=== PATIENT | female | born 2000 | race Caucasian/White ===

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

== ENCOUNTER 2018-01-19 17:40 | Emergency (ER) | payer BC, OTHER ==
[2018-01-19 23:41] VITALS: BP 129/82
--- NOTE | 2018-01-20 01:02 | ED ---
Dylan Diaz Gabriel, scribed for Edson Palacios MD on 01/19/18 at 2231 . Throat Pain/Nasal Congestion - HPI Summary HPI Summary: This patient is a 17 year old F presenting to [facility] c/o blurred vision and increased anxiety. The patient has a history of anxiety disorder and began Abilify a month ago. A week ago she began to have blurred vision and a light headache behind her eyes. Pt was seen at [facility] earlier today and was sent here. LNMP was a month ago. - History of Current Complaint Chief Complaint: EDEyeProblem Time Seen by Provider: 01/19/18 22:10 Hx Obtained From: Patient Onset/Duration: Lasting Weeks, Still Present Severity: Mild Associated Signs And Symptoms: Negative: Drooling - Allergies/Home Medications Allergies/Adverse Reactions: Allergies Allergy/AdvReac Type Severity Reaction Status Date / Time bee venom protein (honey bee) Allergy Swelling Verified 01/19/18 20:04 iodine Allergy Anaphylatic Verified 01/19/18 20:04 Shock Penicillins Allergy Rash Verified 01/19/18 20:04 shellfish derived Allergy Anaphylatic Verified 01/19/18 20:04 Shock Sulfa (Sulfonamide Allergy Rash Verified 01/19/18 20:04 Antibiotics) pinapple Allergy Swelling Uncoded 01/19/18 20:04 Of Face,Lips,& Throat Home Medications: Home Medications EPINEPHrine [Epipen 2-Shantanu] 0.3 mg IM ONCE PRN 01/19/18 [History Confirmed ] hydrOXYzine HCl [Hydroxyzine HCl] 50 mg PO DAILY PRN 01/19/18 [History Confirmed 01/19/18] PMH/Surg Hx/FS Hx/Imm Hx Endocrine/Hematology History: Denies: Hx Diabetes Cardiovascular History: Denies: Hx Hypertension Respiratory History: Reports: Hx Asthma History: Reports: Other Problems/Disorders - ovarian cysts Psychiatric History: Reports: Hx Anxiety, Hx Bipolar Disorder Denies: Hx Eating Disorder - Immunization History Date of Tetanus Vaccine: utd Date of Influenza Vaccine: none Infectious Disease History: No Infectious Disease History: Denies: Traveled Outside the [place] in Last 30 Days - Family History Known Family History: Positive: Diabetes, Other - melanoma Negative: Respiratory Disease, Seizure Disorder - Social History Occupation: Student Lives: Dormitory/Roommates Alcohol Use: Weekly Alcohol Amount: appr. 5 Hx Substance Use: No Substance Use Type: Reports: None Substance Use Comment - Amount & Last Used: weekly Hx Tobacco Use: No Smoking Status (MU): Never Smoked Tobacco Review of Systems Negative: Fever Positive: Blurred Vision Positive: Headache Positive: Anxious All Other Systems Reviewed And Are Negative: Yes Physical Exam - Summary Physical Exam Summary: Appearance: Well appearing, no pain distress Skin: warm, dry, reflects adequate perfusion, there are healed excoriations on the left hand and linear scars on both LE from self harm. Head/face: normal Eyes: EOMI, CARMEN, peripheral vision is normal, red reflex in both eyes is normal , right eye is 20/100, left is 20/50, bilateral 20/40 ENT: normal Neck: supple, non-tender Respiratory: CTA, breath sounds present Cardiovascular: RRR, pulses symmetrical Abdomen: non-tender, soft Bowel Sounds: present Musculoskeletal: normal, strength/ROM intact Neuro: flat affect, sensory motor intact, A&Ox3, pt does not appear anxious Triage Information Reviewed: Yes Vital Signs On Initial Exam: Initial Vitals Temp Pulse Resp BP Pulse Ox 98.0 F 78 16 128/92 100 01/19/18 17:45 01/19/18 17:45 01/19/18 17:45 01/19/18 17:45 01/19/18 17:45 Vital Signs Reviewed: Yes Diagnostics - Vital Signs Vital Signs Temp Pulse Resp BP Pulse Ox 01/19/18 20:00 99.2 F 74 18 140/94 100 01/19/18 17:45 98.0 F 78 16 128/92 100 - Laboratory Lab Results: Lab Results 01/19/18 Range/Units 22:27 POC Glucose (mg/dL) 85 (70-100) mg/dL Lab Statement: Any lab studies that have been ordered have been reviewed, and results considered in the medical decision making process. EENT Course/Dx - Course Course Of Treatment: Patient with decreased visual acuities bilateral since starting Abilify. Blurred vision is a known side effect/adverse reaction of the medication. She is otherwise benign-appearing. She has no diplopia and her near vision is normal. She will require a complete eye exam and tapering off the medication. This will be done by her primary care physician at the [facility]. She is referred back there to call first thing in the morning. - Differential Diagnoses Differential Diagnoses: Other - Medication side effect, hypoglycemia, cluster headache, - Diagnoses Provider Diagnoses: Blurred vision, Medication side effect Discharge - Sign-Out/Discharge Documenting (check all that apply): Discharge/Admit/Transfer - Discharge Plan Condition: Stable Disposition: HOME Patient Education Materials: Blurred Vision (ED) Referrals: Chester Asher MD [Medical Doctor] - 2 Days Additional Instructions: Patient with common side effect of the Abilify medication that she was recently started on. Her acuities are diminished bilaterally. Worse in the right eye. Her sugar is normal. We will refer her back to her primary care office to taper the Abilify and refer her to optometry for complete eye exam. The documentation as recorded by the Dylan madden Gabriel accurately reflects the service I personally performed and the decisions made by me, Edson Palacios MD.
== END 2018-01-19 23:40 | disposition home or self-care (01) ==
LOC: ED 17:40
DX: H53.8 Other visual disturbances (principal); T43.595A Adverse effect of other antipsychotics and neuroleptics, initial encounter; Z88.0 Allergy status to penicillin; Z88.2 Allergy status to sulfonamides; Z88.8 Allergy status to other drugs, medicaments and biological substances
CPT/HCPCS: 99282

== ENCOUNTER → 2018-07-27 | Emergency (ER) | payer BC ==
[~2018-07-27] MED LIST: Aspirin 81 mg CHEW TAB* 81 MG TAB.CHEW PO ONE; hydrOXYzine HCL TAB* 50 MG PO ONE
--- NOTE | 2018-07-27 13:32 | RAD ---
Indication: Chest pain. 2 views of the chest including dual energy PA views demonstrate no mediastinal shift. Heart is of normal size and configuration. Lung aguirre are clear. No prior study is available for comparison. IMPRESSION: No active cardiopulmonary disease is noted.
[2018-07-27 13:41] LABS: ABS Basophils 0.1 10^3/ul (0-0.2); ABS Eosinophils 0.1 10^3/ul (0-0.6); ABS Lymphocytes 2.2 10^3/ul (1.0-4.8); ABS Monocytes 0.8 10^3/ul (0-0.8); ABS Neutrophils 8.4 10^3/ul (1.5-7.7); ABS Nucleated RBC 0 10^3/ul; Eosinophil % 0.5 % (0-6); Hematocrit 41 % (35-47); Hemoglobin 14.2 g/dl (12.0-16.0); Lymphocyte % 18.6 % (25-47); Mean Corpuscular HGB Conc 35 g/dl (31-36); Mean Corpuscular Hemoglobin 32 pg (27-31); Mean Corpuscular Volume 92 fL (80-97); Nucleated Red Blood Cells % 0.1; Platelet Count 350 10^3/ul (150-450); Red Blood Count 4.44 10^6/ul (4.00-5.40); Red Cell Distribution Width 13 % (10.5-15); White Blood Count 11.6 10^3/ul (3.5-10.8)
[2018-07-27 13:58] LABS: INR 0.95 (0.77-1.02)
[2018-07-27 13:59] LABS: EGFR Non-African American 108.5 (>60)
--- NOTE | 2018-07-27 14:16 | ED ---
Psychiatric Complaint - HPI Summary HPI Summary: This patient is a 18 year old F presenting to [facility] with a chief complaint of anxiety for the past couple of days. She endorses racing palpitations, SOB, and dizziness. PMHx bipolar disorder (no medication currently), panic attacks; she states she takes hydroxyzine 50 mg, but has none with her; I need it. PMHx HLD , asthma. SHx multiple surgeries to repair bilateral hip dysplasia. FHx anxiety , bipolar disorder. Pt denies alcohol use today, denies all substance abuse. - History Of Current Complaint Chief Complaint: EDShortnessOfBreath Time Seen by Provider: 07/27/18 13:30 Hx Obtained From: Patient Onset/Duration: Gradual Onset, Lasting Days, Still Present Timing: Constant Severity Initially: Moderate Severity Currently: Moderate Character: Anxious - with hyperventilation/SOB, dizziness, racing heartbeat Aggravating Factor(s): Nothing Alleviating Factor(s): Other - hydroxyzine Associated Signs And Symptoms: Positive: Negative Related History: Positive For: Prior Psychiatric Issues - Panic disorder, bipolar disorder, anxiety Has Suicidal: Denies: Thoughts Has Homicidal: Denies: Thoughts - Allergies/Home Medications Allergies/Adverse Reactions: Allergies Allergy/AdvReac Type Severity Reaction Status Date / Time bee venom protein (honey bee) Allergy Swelling Verified 07/27/18 13:01 iodine Allergy Anaphylatic Verified 07/27/18 13:01 Shock Penicillins Allergy Rash Verified 07/27/18 13:01 shellfish derived Allergy Anaphylatic Verified 07/27/18 13:01 Shock Sulfa (Sulfonamide Allergy Rash Verified 07/27/18 13:01 Antibiotics) pinapple Allergy Swelling Uncoded 01/19/18 20:04 Of Face,Lips,& Throat PMH/Surg Hx/FS Hx/Imm Hx Previously Healthy: No Endocrine/Hematology History: Denies: Hx Diabetes, Hx Sickle Cell Disease Cardiovascular History: Reports: Hx Hypercholesterolemia Denies: Hx Hypertension Respiratory History: Reports: Hx Asthma GI History: Denies: Hx Ileostomy History: Reports: Other Problems/Disorders - ovarian cysts Sensory History: Denies: Hx Contacts or Glasses, Hx Deafness Opthamlomology History: Denies: Hx Contacts or Glasses EENT History: Denies: Hx Deafness Psychiatric History: Reports: Hx Anxiety, Hx Panic Disorder, Hx Bipolar Disorder Denies: Hx Eating Disorder - Surgical History Surgery Procedure, Year, and Place: multiple bilateral hip dysplasia repairs. - Immunization History Date of Tetanus Vaccine: utd Date of Influenza Vaccine: none Infectious Disease History: No Infectious Disease History: Denies: Traveled Outside the [place] in Last 30 Days - Family History Known Family History: Positive: Diabetes, Other - melanoma Negative: Respiratory Disease, Seizure Disorder - Social History Occupation: Student Lives: Dormitory/Roommates Alcohol Use: Weekly Alcohol Amount: appr. 5 Hx Substance Use: No Substance Use Type: Reports: None Substance Use Comment - Amount & Last Used: weekly Hx Tobacco Use: No Smoking Status (MU): Never Smoked Tobacco Review of Systems Negative: Fever Positive: Palpitations - racing Positive: Shortness Of Breath Positive: no symptoms reported Skin: Negative Neurological: Other - dizziness Positive: Anxious All Other Systems Reviewed And Are Negative: Yes Physical Exam - Summary Physical Exam Summary: Appearance: ill-appearing, minimal pain distress, well-nourished, rapid hyperventilating respirations, encouraged to do cupped breathing, no odor similar to ETOH Skin: Warm, color reflects adequate perfusion, dry Head: Normal Head/Face inspection, atraumatic Eyes: Conjunctiva clear ENT: Normal inspection Neck: Supple, no nodes, no JVD Respiratory: shallow respirations, rapid hyperventilating respirations, no wheezes, rales, or rhonchi Cardio: RRR, No murmur, pulses normal, brisk capillary refill Abdomen: Soft, nontender Bowel sounds: Present Musculoskeletal: Strength Intact/ROM intact, no calf tenderness, no edema. Psychological: states she is anxious Neuro: Alert, muscle tone normal, no focal deficit Triage Information Reviewed: Yes Vital Signs On Initial Exam: Initial Vitals Temp Pulse Resp BP Pulse Ox 98.5 F 111 24 139/89 100 07/27/18 12:56 07/27/18 12:56 07/27/18 12:56 07/27/18 12:56 07/27/18 12:56 Vital Signs Reviewed: Yes Diagnostics - Vital Signs Vital Signs Temp Pulse Resp BP Pulse Ox 07/27/18 12:56 98.5 F 111 24 139/89 100 - Laboratory Lab Results: Lab Results 07/27/18 07/27/18 07/27/18 Range/Units 13:28 13:28 13:28 WBC 11.6 H (3.5-10.8) 10^3/ul RBC 4.44 (4.00-5.40) 10^6/ul Hgb 14.2 (12.0-16.0) g/dl Hct 41 (35-47) % MCV 92 (80-97) fL MCH 32 H (27-31) pg MCHC 35 (31-36) g/dl RDW 13 (10.5-15) % Plt Count 350 (150-450) 10^3/ul MPV 9.0 (7.4-10.4) um3 Neut % (Auto) 72.8 (38-83) % Lymph % (Auto) 18.6 L (25-47) % Boyle % (Auto) 7.0 (0-7) % Eos % (Auto) 0.5 (0-6) % Baso % (Auto) 1.1 (0-2) % Absolute Neuts (auto) 8.4 H (1.5-7.7) 10^3/ul Absolute Lymphs (auto) 2.2 (1.0-4.8) 10^3/ul Absolute Monos (auto) 0.8 (0-0.8) 10^3/ul Absolute Eos (auto) 0.1 (0-0.6) 10^3/ul Absolute Basos (auto) 0.1 (0-0.2) 10^3/ul Absolute Nucleated RBC 0 10^3/ul Nucleated RBC % 0.1 INR (Anticoag Therapy) 0.95 (0.77-1.02) D-Dimer, Quantitative < 200 (Less Than 230) ng/mL Sodium 138 (135-145) mmol/L Potassium 3.5 (3.5-5.0) mmol/L Chloride 106 (101-111) mmol/L Carbon Dioxide 22 (22-32) mmol/L Anion Gap 10 (2-11) mmol/L BUN 14 (6-24) mg/dL Creatinine 0.69 (0.51-0.95) mg/dL Est GFR ( Amer) 131.2 (>60) Est GFR (Non-Af Amer) 108.5 (>60) BUN/Creatinine Ratio 20.3 H (8-20) Glucose 118 H (70-100) mg/dL Lactic Acid (0.5-2.0) mmol/L Calcium 10.2 (8.6-10.3) mg/dL Magnesium 1.8 L (1.9-2.7) mg/dL Total Bilirubin 0.50 (0.2-1.0) mg/dL AST 15 (13-39) U/L ALT 14 (7-52) U/L Alkaline Phosphatase 69 (34-104) U/L Total Creatine Kinase 70 (10-223) U/L CK-MB (CK-2) 0.8 (0.6-6.3) ng/mL Troponin I 0.00 (<0.04) ng/mL Total Protein 7.4 (6.4-8.9) g/dL Albumin 4.7 (3.2-5.2) g/dL Globulin 2.7 (2-4) g/dL Albumin/Globulin Ratio 1.7 (1-3) TSH Pending Thyroxine (T4) Pending Beta HCG, Quant < 0.60 mIU/mL 07/27/18 Range/Units 13:28 WBC (3.5-10.8) 10^3/ul RBC (4.00-5.40) 10^6/ul Hgb (12.0-16.0) g/dl Hct (35-47) % MCV (80-97) fL MCH (27-31) pg MCHC (31-36) g/dl RDW (10.5-15) % Plt Count (150-450) 10^3/ul MPV (7.4-10.4) um3 Neut % (Auto) (38-83) % Lymph % (Auto) (25-47) % Boyle % (Auto) (0-7) % Eos % (Auto) (0-6) % Baso % (Auto) (0-2) % Absolute Neuts (auto) (1.5-7.7) 10^3/ul Absolute Lymphs (auto) (1.0-4.8) 10^3/ul Absolute Monos (auto) (0-0.8) 10^3/ul Absolute Eos (auto) (0-0.6) 10^3/ul Absolute Basos (auto) (0-0.2) 10^3/ul Absolute Nucleated RBC 10^3/ul Nucleated RBC % INR (Anticoag Therapy) (0.77-1.02) D-Dimer, Quantitative (Less Than 230) ng/mL Sodium (135-145) mmol/L Potassium (3.5-5.0) mmol/L Chloride (101-111) mmol/L Carbon Dioxide (22-32) mmol/L Anion Gap (2-11) mmol/L BUN (6-24) mg/dL Creatinine (0.51-0.95) mg/dL Est GFR ( Amer) (>60) Est GFR (Non-Af Amer) (>60) BUN/Creatinine Ratio (8-20) Glucose (70-100) mg/dL Lactic Acid 2.6 H* (0.5-2.0) mmol/L Calcium (8.6-10.3) mg/dL Magnesium (1.9-2.7) mg/dL Total Bilirubin (0.2-1.0) mg/dL AST (13-39) U/L ALT (7-52) U/L Alkaline Phosphatase (34-104) U/L Total Creatine Kinase (10-223) U/L CK-MB (CK-2) (0.6-6.3) ng/mL Troponin I (<0.04) ng/mL Total Protein (6.4-8.9) g/dL Albumin (3.2-5.2) g/dL Globulin (2-4) g/dL Albumin/Globulin Ratio (1-3) TSH Thyroxine (T4) Beta HCG, Quant mIU/mL Result Diagrams: 07/27/18 13:28 07/27/18 13:28 Lab Statement: Any lab studies that have been ordered have been reviewed, and results considered in the medical decision making process. - Radiology CXR Radiology Interpretation Completed By: Radiologist Summary of Radiographic Findings: No active cardiopulmonary disease is noted. Dr. Ludwig has reviewed this report. - EKG 1317 Cardiac Rate: NL - 88 EKG Rhythm: Sinus Rhythm ST Segment: Non-Specific Ectopy: None EKG Comparison: Other - No prior to compare to Summary of EKG Findings: Nl IVCT, nl QTc, no STEMI. Re-Evaluation - Re-Evaluation First Eval Re-Evaluation Time: 15:16 Change: Improved Comment: Respirations are slowed, after hydroxyzine, but still slightly anxious. Denies SI, HI. Lives with Araxi, boyfriend Jamarcus with her. Course/Dx - Course Course Of Treatment: A 18-year-old F presents to the ED with a CC of anxiety for the "past couple days". (+) racing palpitations, hyperventilation, dizziness. PMHx panic disorder, anxiety, bipolar disorder (currently not on meds , not established with mental health provider while at college yet). FHx bipolar disorder. She states hydroxyzine 50 mg helps, but has none with her; I need it. A CXR was (-). An EKG reveals NSR at 88 BPM with no ectopy, no STEMI. In the ED course, pt was given ASA and hydroxyzine. Pt labs show high WBC, high MCH, low lymph %, high abs neuts, high BUN/creat ratio, high glucose, a high lactic acid at 2.6, and low Mg2+. Pt denies suicidal and homicial ideation, and pt's roommate Mei and michelleienrenetta Ricketts, present with pt in the ED, support these statements by pt. Pt feels her panic attack is under control and pt and roommate and boyfriend all feel pt is safe for discharge without further mental health evaluation. Pt is advised regarding additional mental health support available to her in addition to [facility], and is given crisis hotline number. Pt's roommate Mei and michelleienrenetta Ricketts are advised that they or pt should call 911 if pt's symptoms recur, or pt has suicidal or homicidal thoughts. Pt is discharged to her dorm with her boyfriend Jamarcus. Pt's roommate Mei will be with pt hans. - Differential Dx/Clinical Impression Differential Diagnosis/HQI/PQRI: Positive: Anxiety, Bipolar Disorder, Other - panic attack Provider Diagnosis: Generalized anxiety disorder with panic attacks, Panic attack Discharge - Sign-Out/Discharge Documenting (check all that apply): Patient Departure - discharge - Discharge Plan Condition: Stable Disposition: HOME Prescriptions: hydrOXYzine HCL TAB* [Atarax TAB 50 MG *] 50 mg PO QID #8 tab Patient Education Materials: Panic Attack (ED), Suicide Prevention (ED) Referrals: [facility] [Outside] - 1 Day (There is a physician that will see you at this clinic tomorrow or the next day if needed. ) [facility] [Outside] - 1 Day (May walk in 0830-4pm every weekday. ) [facility] [Primary Care Provider] - As Soon As Possible Additional Instructions: Your labs, EKG, and CXR did not show any significant abnormalities, except for the lactic acid, which will have normalized as you normalized your breathing. Dr. Ludwig gave you hydroxyzine 50 mg at 2:45pm. You may take the hydoxyzine on a scheduled basis four times a day, rather than as needed, to help with your anxiety until you get established with a provider. You may be a walk in patient at [facility] tomorrow or any weekday. You may be seen at the [facility] tomorrow or the next day as needed. [facility] at [facility]. You should call 911, or have Jamarcus or Mei call 911 if you do not feel safe or if you feel suicidal or homicidal. We have also provided the crisis hotline. Return to the ED if any new or worsening symptoms. - Billing Disposition and Condition Condition: STABLE Disposition: Home - Attestation Statements Document Initiated by Henok: Yes Documenting Scribe: Jasvir Blancas Provider For Whom Henok is Documenting (Include Credential): Dr. Peggy Ludwig MD Scribe Attestation: Jasvir Diaz scribed for Dr. Peggy Ludwig MD on 08/01/18 at 1230. Scribe Documentation Reviewed: Yes Provider Attestation: The documentation as recorded by the Jasvir madden accurately reflects the service I personally performed and the decisions made by me, Dr. Peggy Ludwig MD
[2018-07-27 16:13] VITALS: BP 121/65
== END | disposition home or self-care (01) ==
LOC: ED 12:51
DX: F41.0 Panic disorder [episodic paroxysmal anxiety] (principal); F31.9 Bipolar disorder, unspecified; R07.9 Chest pain, unspecified; Z88.2 Allergy status to sulfonamides
CPT/HCPCS: 36415; 71046; 80053; 82550; 82553; 83605; 83735; 84436; 84443; 84484; 84702; 85025; 85379; 85610; 93005; 99282; A9270-GY